=== PATIENT | female | born 1990 | race Caucasian/White ===

== ENCOUNTER 2016-05-13 16:19 | Emergency (ER) | payer OTHER ==
[2016-05-13] MEDS ORDERED: Ketorolac INJ* 30 MG/ML 1 ML VIAL IV PUSH ONE (19:29)
[2016-05-13] MEDS ORDERED: NS 0.9% 1000 ML* 1,000 ML IV ONE (19:29)
[2016-05-13 19:58] LABS: Hematocrit 35 % (35-47); Hemoglobin 11.2 g/dl (12.0-16.0); Mean Corpuscular HGB Conc 32 g/dl (31-36); Mean Corpuscular Hemoglobin 28 pg (27-31); Mean Corpuscular Volume 87 fL (80-97); Mean Platelet Volume 9 um3 (7.4-10.4); Red Blood Count 4.01 10^6/ul (4.0-5.4); Red Cell Distribution Width 14 % (10.5-15)
[2016-05-13 20:02] LABS: Urine Bacteria 1+ (Absent); Urine Bilirubin Negative (Negative); Urine Glucose Negative (Negative); Urine Nitrite Negative (Negative)
[2016-05-13 20:05] LABS: Albumin 3.6 g/dL (3.2-5.2); BUN/Creatinine Ratio 11.6 (8-20); Calcium 9.1 mg/dL (8.6-10.3); EGFR African American 133.3 (>60); EGFR Non-African American 103.7 (>60); Globulin 3.5 g/dL (2-4); Magnesium 1.9 mg/dL (1.9-2.7); Potassium 3.7 mmol/L (3.5-5.0); Total Bilirubin 0.2 mg/dL (0.2-1.0); Total Protein 7.1 g/dL (6.4-8.9)
--- NOTE | 2016-05-13 20:05 | ED ---
roberta Tucker Timothy, scribed for Shakira Coker MD on 05/13/16 at 1924 . GI/ HPI - HPI Summary HPI Summary: Nita Ramesh is a 26 yo female presenting to [facility] with 4 days of PID symptoms including constant, severe 6/10 pelvic pain made worse with position, heavy discharge (greenish and bleeding) x 2 days, fevers and chills, and some urinary discomfort. Pt reports tactile temp. Pt states she is nitrofuratoin from PCP x 2 days. She saw [facility] yesterday for discharge. Pt did not have a pelvic exam. Pt states she was admitted with PID several months a She is presenting to the ED upon recommendation to appear if her pelvic pain worsened, which it has. Her last menses was 04/27/16. Pt reports negative test yesterday. Pt denies dx of STDs. Pt has been taking Motrin with intermittent relief. Last dose at 2pm. Pt is sexually active with 1 partner. She has no other significant MHx. - History of Current Complaint Chief Complaint: EDUrogenitalProblems Time Seen by Provider: 05/13/16 18:37 Stated Complaint: PELVIC PAIN/VAG.BLEEDING/VOMITING Hx Obtained From: Patient Onset/Duration: Started Days Ago, Still Present, Worse Since - today Timing: Constant, Lasting Days Severity: Moderate Current Severity: Moderate Pain Intensity: 6 Location of Pain: Suprapubic Associated Signs and Symptoms: Positive: Nausea, Vomiting, Discharge, Fever, Dysuria Additional Signs & Symptoms: Positive: Vaginal Discharge Aggravating Factor(s): Movement - position Alleviating Factor(s): Nothing - Additional Pertinent History Primary Care Physician: ALISHA - Allergy/Home Medications Allergies/Adverse Reactions: Allergies Allergy/AdvReac Type Severity Reaction Status Date / Time Tramadol Allergy Severe N/V Verified 05/13/16 16:37 Home Medications: Home Medications Advil TAB* 600 mg PO Q6H PRN 05/13/16 [History Confirmed 05/13/16] Nitrofurantoin 100 mg PO BID 05/13/16 [History Confirmed 05/13/16] PMH/Surg Hx/FS Hx/Imm Hx Previously Healthy: Yes Endocrine/Hematology History: Denies: Hx Diabetes, Hx Thyroid Disease Cardiovascular History: Denies: Hx Hypertension Respiratory History: Denies: Hx Asthma, Hx Chronic Obstructive Pulmonary Disease (COPD) GI History: Reports: Other GI Disorders - nausea, vomiting on and off [id number] Denies: Hx Ulcer History: Reports: Other Problems/Disorders - PID x 2, and frequent UTIs Sensory History: Denies: Hx Contacts or Glasses - glasses Opthamlomology History: Denies: Hx Contacts or Glasses - glasses - Surgical History Surgery Procedure, Year, and Place: CHOLECYSTECTOMY 05/2014 Hx Anesthesia Reactions: No Infectious Disease History: No Infectious Disease History: Denies: Hx Clostridium Difficile, Hx Hepatitis, Hx Human Immunodeficiency Virus (HIV), Hx of Known/Suspected MRSA, History Other Infectious Disease, Traveled Outside the [place] in Last 30 Days - Family History Known Family History: Positive: Hypertension, Other - Grandfather Leukemia - Social History Alcohol Use: Occasionally Alcohol Amount: 3 GLASSES/WEEK Substance Use Type: Reports: Marijuana Substance Use Comment - Amount & Last Used: OCCASIONALLY Hx Tobacco Use: No Smoking Status (MU): Never Smoked Tobacco Review of Systems Positive: Fever, Chills Eyes: Negative Negative: Photophobia, Blurred Vision, Diplopia, Drainage, Erythema ENT: Negative Negative: Epistaxis, Dental Pain, Sore Throat, Ear Ache, Nasal Discharge Cardiovascular: Negative Negative: Palpitations, Chest Pain Respiratory: Negative Negative: Shortness Of Breath, Cough Positive: Vomiting, Nausea. Negative: Abdominal Pain, Diarrhea Genitourinary: Other - pelvic pain Positive: dysuria, discharge. Negative: burning, frequency, flank pain, hematuria, incontinence, pain, urgency Musculoskeletal: Negative Negative: Arthralgia, Myalgia, Decreased ROM, Edema Skin: Negative Negative: Rash, Bruising Neurological: Negative Negative: Headache, Weakness, Paresthesia, Numbness, Syncope, Slurred Speech Psychological: Normal Negative: Anxious, Depressed All Other Systems Reviewed And Are Negative: Yes Physical Exam Triage Information Reviewed: Yes Vital Signs On Initial Exam: Initial Vitals Temp Pulse Resp BP Pulse Ox 98.1 F 68 16 113/61 99 05/13/16 16:31 05/13/16 16:31 05/13/16 16:31 05/13/16 16:31 05/13/16 16:31 Vital Signs Reviewed: Yes Appearance: Positive: Well-Appearing, No Pain Distress, Well-Nourished Skin: Positive: Warm, Skin Color Reflects Adequate Perfusion, Dry Head/Face: Positive: Normal Head/Face Inspection Eyes: Positive: Normal, EOMI, KELI ENT: Positive: Normal ENT inspection, TMs normal Neck: Positive: Supple, Nontender, No Lymphadenopathy Respiratory/Lung Sounds: Positive: Clear to Auscultation, Breath Sounds Present. Negative: Stridor, Wheezes Cardiovascular: Positive: Normal, RRR, Murmur Abdomen Description: Positive: Nontender, No Organomegaly, Soft. Negative: Distended, Guarding Bowel Sounds: Positive: Present Pelvic Exam: Positive: discharge - Pt with yellow, green tinged discharge. No bleeding. no lesions No odor, tender w/ cervical motion. Negative: external exam normal, speculum exam normal, no cerv. motion tender - minimal CMT, blood, lesions, mass, tender adnexa, tender uterus, ulcers, other Musculoskeletal: Positive: Normal Neurological: Positive: Normal, Sensory/Motor Intact Psychiatric: Positive: Normal AVPU Assessment: Alert - Aman Coma Scale Best Eye Response: 4 - Spontaneous Best Motor Response: 6 - Obeys Commands Best Verbal Response: 5 - Oriented Coma Scale Total: 15 Diagnostics - Vital Signs Vital Signs Temp Pulse Resp BP Pulse Ox 05/13/16 18:31 78 100 05/13/16 16:45 99.2 F 74 16 100/52 99 05/13/16 16:31 98.1 F 68 16 113/61 99 - Laboratory Lab Results: Lab Results 05/13/16 05/13/16 Range/Units 18:25 18:45 WBC 13.0 H (3.5-10.8) 10^3/ul RBC 4.01 (4.0-5.4) 10^6/ul Hgb 11.2 L (12.0-16.0) g/dl Hct 35 (35-47) % MCV 87 (80-97) fL MCH 28 (27-31) pg MCHC 32 (31-36) g/dl RDW 14 (10.5-15) % Plt Count 203 (150-450) 10^3/ul MPV 9 (7.4-10.4) um3 Neut % (Auto) 70.3 (38-83) % Lymph % (Auto) 19.6 L (25-47) % [place] % (Auto) 7.2 (1-9) % Eos % (Auto) 2.6 (0-6) % Baso % (Auto) 0.3 (0-2) % Absolute Neuts (auto) 9.2 H (1.5-7.7) 10^3/ul Absolute Lymphs (auto) 2.6 (1.0-4.8) 10^3/ul Absolute Monos (auto) 0.9 H (0-0.8) 10^3/ul Absolute Eos (auto) 0.3 (0-0.6) 10^3/ul Absolute Basos (auto) 0 (0-0.2) 10^3/ul Absolute Nucleated RBC 0 10^3/ul Nucleated RBC % 0 Urine Color Yellow Urine Appearance Clear Urine pH 5.0 (5-9) Ur Specific [place] 1.018 (1.010-1.030) Urine Protein Negative (Negative) Urine Ketones Negative (Negative) Urine Blood 2+ H (Negative) Urine Nitrate Negative (Negative) Urine Bilirubin Negative (Negative) Urine Urobilinogen Negative (Negative) Ur Leukocyte Esterase Trace H (Negative) Urine WBC (Auto) 2+(11-20/hpf) H (Absent) Urine RBC (Auto) 1+(3-5/hpf) H (Absent) Ur Squamous Epith Cells Present H (Absent) Urine Bacteria 1+ H (Absent) Urine Glucose Negative (Negative) Result Diagrams: 05/13/16 18:45 05/13/16 18:45 Lab Statement: Any lab studies that have been ordered have been reviewed, and results considered in the medical decision making process. GIGU Course/Dx - Course Assessment/Plan: Pt presents with pelvic pain. yellow/green discharge mild CMT. Culture taken. Will check cbc/cmp. toradol. IVF. will check pelvic ultrasound. pending results -w ill give abx - likely d/c. Pt in agreement with plan - Diagnoses Provider Diagnoses: Pelvic pain Discharge - Discharge Plan Condition: Stable Disposition: OTHER Discharge Disposition Comment: Dr. Tavera 2100 ultrasound pending The documentation as recorded by the roberta doty Timothy accurately reflects the service I personally performed and the decisions made by , Shakira Coker MD.
[2016-05-13 21:26] VITALS: BP 97/55
--- NOTE | 2016-05-13 22:48 | RAD ---
Indication: Pelvic pain and pelvic discharged, possible PID. COMPARISON: Comparison is made with a prior study from January 16, 2016. TECHNIQUE: Multiple real-time transvaginal images of the pelvis were obtained. FINDINGS: The uterus is normal in size, shape and echogenicity. The uterus measured 6.7 x 3.8 x 5.0 cm. The endometrial echo measured 0.4 cm in thickness. The right ovary measured 2.1 x 1.2 x 1.7 cm. The left ovary measured 2.4 x 1.2 x 1.2 cm. There is vascular flow within both ovaries. No free intraperitoneal fluid is seen. IMPRESSION: NEGATIVE EXAM.
[2016-05-13] MEDS ORDERED: cefTRIAXone VIAL(*) 250 MG VIAL IM ONE (23:03)
[2016-05-13] MEDS ORDERED: DOXYcycline CAP(*) 100 MG PO ONE (23:03)
[2016-05-13] MEDS ORDERED: metroNIDAZOLE TAB* 250 MG PO ONE (23:03)
== END 2016-05-13 23:33 ==
LOC: ED 16:19
DX: R10.2 Pelvic and perineal pain (principal); R50.9 Fever, unspecified; R11.2 Nausea with vomiting, unspecified; R30.0 Dysuria
CPT/HCPCS: 36415; 76830; 80053; 81003; 81015; 83735; 85025; 86703; 87086; 87480; 87491; 87510; 87591; 87661; 96372; 96374; 99283; A9270-GY; J0696; J1885

== ENCOUNTER 2016-09-30 09:49 | Emergency (ER) | payer OTHER ==
[2016-09-30] MEDS ORDERED: Ondansetron ODT TAB* 4 MG PO ONE ×2 (10:00→10:32)
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
--- NOTE | 2016-09-30 11:46 | RAD ---
INDICATION: Left rib injury. TECHNIQUE: 4 views of the left ribs were obtained. FINDINGS: No fracture or significant focal osseous abnormality is seen. IMPRESSION: NO EVIDENCE FOR FRACTURE.
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
[2016-09-30 12:21] VITALS: BP 97/55
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
== END 2016-09-30 12:24 | disposition home or self-care (01) ==
LOC: UCEAST 09:49
DX: S20.212A Contusion of left front wall of thorax, initial encounter (principal); F07.81 Postconcussional syndrome; S16.1XXA Strain of muscle, fascia and tendon at neck level, initial encounter; V89.2XXA Person injured in unspecified motor-vehicle accident, traffic, initial encounter; W22.10XA Striking against or struck by unspecified automobile airbag, initial encounter; Y93.9 Activity, unspecified; Y92.9 Unspecified place or not applicable; Y99.9 Unspecified external cause status
CPT/HCPCS: 70450; 71020; 72050; 99212; A9270-GY; G0463

== ENCOUNTER 2016-10-28 19:38 | Emergency (ER) | payer OTHER ==
[2016-10-28 19:49] VITALS: BP 105/68
--- NOTE | 2016-10-28 21:02 | UC ---
roberta Tucker Timothy, scribed for Shakira Coker MD on 10/28/16 at 2048 . Throat Pain/Nasal Amado HPI - HPI Summary HPI Summary: Nita Ramesh is a 26 yo female presenting to [facility] with 6/10 sore throat for the past 2 days and concern for UTI with burning dysuria for the past week. She notes mild hematuria and fever this morning. She notes mild nausea and sinus congestion as well. She denies vaginal itching or odor, as well as wounds and STI. She states her last instance of intercourse was a few days ago, and it was painful, which is unusual. Pt states has been treated for PDI in the past, but denies h/o STI. Pt states her sx today feel similar to previous PID. She states it is possible her most recent partner may have sTI. No fevers, chills, rash. No difficulty swallowing. No canchola, vision changes No rash. - History of Current Complaint Chief Complaint: UCGU Stated Complaint: SORE THROAT AND UTI COMPLAINT Time Seen by Provider: 10/28/16 20:48 Hx Obtained From: Patient Hx Last Menstrual Period: 10/24/16 Onset/Duration: Sudden Onset, Lasting Days, Still Present Severity: Moderate Pain Intensity: 6 Pain Scale Used: 0-10 Numeric Cough: None Associated Signs & Symptoms: Positive: Sinus Discomfort, Other - burning dysuria , nausea - Allergies/Home Medications Allergies/Adverse Reactions: Allergies Allergy/AdvReac Type Severity Reaction Status Date / Time No Known Allergies Allergy Verified 09/30/16 10:00 PMH/Surg Hx/FS Hx/Imm Hx Previously Healthy: Yes Other GI/ History: PIDx2, frequent UTI - Surgical History Surgical History: Yes Surgery Procedure, Year, and Place: CHOLECYSTECTOMY 05/2014 - Family History Known Family History: Positive: Hypertension, Other - Grandfather Leukemia - Social History Occupation: Employed Full-time Alcohol Use: Occasionally Alcohol Amount: 3 GLASSES/WEEK Substance Use Type: Marijuana Substance Use Comment - Amount & Last Used: OCCASIONALLY Smoking Status (MU): Never Smoked Tobacco Household Exposure Type: Cigarettes - Immunization History Most Recent Influenza Vaccination: 2016 Most Recent Tetanus Shot: unknown Most Recent Pneumonia Vaccination: never Review of Systems Constitutional: Fever Skin: Negative Eyes: Negative ENT: Sore Throat, Sinus Congestion Respiratory: Negative Cardiovascular: Negative Gastrointestinal: Nausea Genitourinary: Dysuria Motor: Negative Neurovascular: Negative Musculoskeletal: Negative Neurological: Negative Psychological: Negative All Other Systems Reviewed And Are Negative: Yes Physical Exam Triage Information Reviewed: Yes Vital Signs: Initial Vital Signs Temp 98.3 F 10/28/16 19:45 Pulse 88 10/28/16 19:45 Resp 18 10/28/16 19:45 BP 105/68 10/28/16 19:45 Pulse Ox 100 10/28/16 19:45 Vital Signs Reviewed: Yes Eye Exam: Normal ENT Exam: Normal ENT: Positive: Normal ENT inspection, TMs normal. Negative: Pharyngeal erythema , Nasal congestion, Tonsillar swelling, Tonsillar exudate Dental Exam: Normal Neck exam: Normal Neck: Positive: Supple, Nontender, No Lymphadenopathy Respiratory Exam: Normal Respiratory: Positive: Chest non-tender, Lungs clear, Normal breath sounds, No respiratory distress Cardiovascular Exam: Normal Cardiovascular: Positive: RRR, No Murmur Abdominal Exam: Normal Abdomen Description: Positive: Nontender, No Organomegaly, Soft Bowel Sounds: Positive: Present Musculoskeletal Exam: Normal Neurological Exam: Normal Psychological Exam: Normal Skin Exam: Normal Throat Pain/Nasal Course/Dx - Course Assessment/Plan: Nita Ramesh is a 26 yo female presenting to [facility] with 6/10 sore throat for the past 2 days and burning dysuria for the past wee. Pt with stable vss and no concerning exam. D/w pt urine without clear infection. consider gonorrhea as possibile dx. Will treat wtih dx - culture. Pt comfortable and in agreement with plan. Pt moved to [facility] - gave info for women's health clinic. return precautions discussed. Pt medication list reviewed this visit. - Differential Dx/Diagnosis Differential Diagnosis/HQI/PQRI: Other - sore throat, uti Provider Diagnoses: dysuria, pharyngitis Discharge - Discharge Plan Condition: Stable Disposition: HOME Prescriptions: DOXYcycline CAP(*) [DOXYcycline 100MG CAP(*)] 100 mg PO BID #20 cap Patient Education Materials: Pharyngitis (ED), Dysuria (ED) Referrals: Lizz Fuentes MD [Primary Care Provider] - 2 Days Additional Instructions: Take antibiotics as prescribed As discussed with your provider today, your urine is being further tested for gonorrhea and chlamydia You are being treated with an antibiotic today that will treat this infection It is recommended you follow-up with a garment presser -either your garment presser in [place] or in a new provider in the [facility] area The woman's health clinic on [address] is accepting new patients Stay well hydrated Take motrin or tylenol as needed contact your doctor or return with questions or concerns The documentation as recorded by the roberta doty Timothy accurately reflects the service I personally performed and the decisions made by me, Shakira Coker MD.
[2016-10-28] MEDS ORDERED: DOXYcycline CAP(*) 100 MG PO ONE (21:03)
== END 2016-10-28 21:25 | disposition home or self-care (01) ==
LOC: UCEAST 19:38
DX: R30.0 Dysuria (principal); J02.9 Acute pharyngitis, unspecified; Z72.0 Tobacco use
CPT/HCPCS: 81003; 84702; 87077; 87086; 87186; 87491; 87591; 87651; 99212; A9270-GY; G0463

== ENCOUNTER 2016-12-04 12:20 | Emergency (ER) | payer OTHER ==
--- NOTE | 2016-12-04 13:59 | RAD ---
INDICATION: Low back pain with hematuria COMPARISON: CT abdomen pelvis May 11, 2015 TECHNIQUE: Noncontrast axial source images were acquired from the level hemidiaphragms to the symphysis pubis as part of CT imaging for renal stone. Lung bases: The lung bases are clear. Liver: The liver is normal in size. Noncontrast imaging shows no evidence of a hepatic mass or ductal dilatation. Gallbladder: There are no calcified gallstones. There is no evidence of wall thickening or pericholecystic fluid.. Spleen: The spleen is normal in size. The noncontrast CT appearance is normal. Pancreas: Noncontrast imaging shows no pancreatic mass or ductal dilitation. Adrenal glands: No masses are identified. Kidneys/Bladder: There is no evidence of nephrolithiasis or CT evidence of hydronephrosis. Noncontrast imaging shows no evidence of a renal mass. The bladder is unremarkable. There are phleboliths in the minor pelvis. Adenopathy: There is no evidence of intraperitoneal or retroperitoneal adenopathy. Evaluation is limited without oral contrast. Fluid collections: There are no free or localized fluid collections. Vessels: The aorta and iliac vessels are normal in caliber. There are no significant atherosclerotic changes. The IVC appears normal Pelvic organs: The uterus and adnexa appear normal GI tract: Evaluation of the bowel is limited without oral contrast. The stomach, small bowel, and lower GI tract appear grossly normal. There is moderate stool in the rectal vault. There are no obstructive findings. The appendix is visualized and appears normal. Soft tissues: No soft tissue abnormalities of the extraperitoneal abdomen or pelvis are identified. Osseous structures: There are no acute osseous findings. IMPRESSION: NO CT EVIDENCE OF UROLITHIASIS . MODERATE STOOL RECTAL VAULT.
[2016-12-04] MEDS ORDERED: cefTRIAXone VIAL(*) 250 MG VIAL IM ONE (14:34)
[2016-12-04] MEDS ORDERED: Lidocaine 1% INJ* 10 MG/ML 30 ML SDV INJ ONE (14:37)
[2016-12-04 14:38] VITALS: BP 117/79
[2016-12-04] MEDS ORDERED: Lidocaine 1% MPF* 2 ML VIAL ONE (14:46)
--- NOTE | 2016-12-05 14:30 | ED ---
Progress - Progress Note Progress Note: Pt with + Garderella - was given Flagyl at time of eval - no change urine + klebsiella - awaitin sensitivities Ljj Course/Dx - Diagnoses Provider Diagnoses: Bacterial vaginosis
--- NOTE | 2016-12-06 09:16 | ED ---
Progress - Progress Note Progress Note: Pt with + Garderella - was given Flagyl at time of eval - no change urine + klebsiella - awaitin sensitivities Ljj 12/06/16 DOXYCYCLINE SENSITIVE TO KLEBSIELA. SEE HOW PATIENT IS DOING/ IF WORSE F /U PCP OR ER. Course/Dx - Diagnoses Provider Diagnoses: Bacterial vaginosis
== END 2016-12-04 15:25 | disposition home or self-care (01) ==
LOC: UCEAST 12:20
DX: N76.0 Acute vaginitis (principal); Z32.02 Encounter for pregnancy test, result negative
CPT/HCPCS: 74176; 81003; 84702; 87070; 87077; 87086; 87186; 87480; 87491; 87510; 87591; 87661; 96372; 99212; G0463; J0696; J2001

== ENCOUNTER 2018-03-25 13:16 | Emergency (ER) | payer SELFPAY ==
--- NOTE | 2018-03-25 13:35 | UC ---
GI Bleed HPI - HPI Summary HPI Summary: Started w/ vomiting and abd discomfort a week ago. She feels she has a GI bug. Today vomited approx 5 times and there was blood tinged vomit. Of note she has a hx of eating disorder but has not purged in years. - History Of Current Complaint Chief Complaint: UCGeneralIllness Stated Complaint: VOMITTIGN BLOOD, LIGHTHEADEDNESS Time Seen by Provider: 03/25/18 13:18 Hx Last Menstrual Period: merina Onset/Duration: Gradual Onset Severity Initially: Mild Severity Currently: Mild Pain Intensity: 5 Pain Scale Used: 0-10 Numeric Associated Pain: None Aggravating Factor(s): Other - nothing Alleviating Factor(s): Other - nothing Associated Signs And Symptoms: Positive: Dizziness, Weakness. Negative: Syncope - Allergies/Home medications Allergies/Adverse Reactions: Allergies Allergy/AdvReac Type Severity Reaction Status Date / Time No Known Allergies Allergy Verified 03/25/18 13:25 PMH/Surg Hx/FS Hx/Imm Hx - Additional Past Medical History Additional PMH: hx of eating disorder Previously Healthy: Yes GI/ History: Gastrointestional Bleed - Surgical History Surgical History: Yes Surgery Procedure, Year, and Place: CHOLECYSTECTOMY 05/2014 - Family History Known Family History: Positive: Hypertension, Other - Grandfather Leukemia - Social History Alcohol Use: Rare Alcohol Amount: 3 GLASSES/WEEK Substance Use Type: Marijuana Substance Use Comment - Amount & Last Used: OCCASIONALLY Smoking Status (MU): Never Smoked Tobacco Household Exposure Type: Cigarettes - Immunization History Most Recent Influenza Vaccination: 2016 Most Recent Tetanus Shot: unknown Most Recent Pneumonia Vaccination: never Review of Systems All Other Systems Reviewed And Are Negative: Yes Constitutional: Positive: Fatigue, Other - decrease appetite, not eating. Respiratory: Positive: Negative Cardiovascular: Positive: Negative Gastrointestinal: Positive: Vomiting Genitourinary: Positive: Negative Neurological: Positive: Weakness, Other - dizzy Psychological: Positive: Negative Physical Exam Triage Information Reviewed: Yes Appearance: Well-Appearing Vital Signs: Initial Vital Signs Temp 98 F 03/25/18 13:21 Pulse 68 03/25/18 13:21 Resp 16 03/25/18 13:21 BP 117/75 03/25/18 13:21 Pulse Ox 100 03/25/18 13:21 Vital Signs Reviewed: Yes Neck: Positive: No Lymphadenopathy Respiratory Exam: Normal Cardiovascular Exam: Normal Abdominal Exam: Normal Neurological: Positive: Alert Bleed Course/Dx - Course Course Of Treatment: mild case of hematemesis. ? rhiannon-aguilar tear. + orthostatic. could be GI illness but given her hx of dx: vomiting w/ blood and hx of eating disorder she should probably get worked up w/ hct, blood work and ? endoscopy. strongly recommended she go to ED via ambulance. she declined due to cost. she did leave w/ a friend. i did review her endoscopy report from 2016 which was essentially NL. - Differential Dx/Diagnosis Differential Diagnosis/HQI/PQRI: Adverse Drug Effect, Esophageal Varices, Esophagitis Provider Diagnosis: Hematemesis/vomiting blood, Orthostatic dizziness Discharge - Sign-Out/Discharge Documenting (check all that apply): Patient Departure All imaging exams completed and their final reports reviewed: No Studies - Discharge Plan Condition: Good Disposition: HOME-RECOMMEND TO ED Patient Education Materials: Syncope (ED), Rhiannon-Aguilar Syndrome (ED) Forms: *School Release Referrals: No Primary Care Phys,NOPCP [Primary Care Provider] - Jack Lazaro MD [Medical Doctor] - Additional Instructions: I strongly recommend you go to the [facility] for a jerry evaluation. - Billing Disposition and Condition Condition: GOOD Disposition: Home-Recommend to ED
[2018-03-25 13:38] VITALS: BP 105/80
== END 2018-03-25 13:47 | disposition home health service (06) ==
LOC: UCEAST 13:16
DX: K92.0 Hematemesis (principal); R42 Dizziness and giddiness
CPT/HCPCS: 99212; G0463

== ENCOUNTER → 2018-03-25 14:13 | Emergency (ER) | payer SELFPAY ==
[~2018-03-25 14:13] MED LIST: Acetaminophen TAB* 325 MG PO ONE; Famotidine IV* 10 MG/ML 2 ML (20 mg) IV SLOW PU ONE; NS 0.9% 1000 ML* 1,000 ML IV ONE; Ondansetron INJ* 2 MG/ML VIAL IV ONE
[2018-03-25 14:20] VITALS: BP 117/78
--- NOTE | 2018-03-25 15:41 | ED ---
Nausea/Vomiting/Diarrhea HPI - HPI Summary HPI Summary: Patient is a 28-year-old female sent in from urgent care with nausea and vomiting over the course of the last 3 days, she endorses 6xs emesis today she states with flecks of blood.She also states she had 1 syncopal episode after vomiting and hit the R jainism. Endorses 2/10 ADAMS. Denies confusion, memory loss , visual changes. History of bulimia, this is not current. She denies any abdominal pain, urinary urgency, frequency, burning, back pain. She states she has been on multiple antibiotics over the course of the past several months for upper respiratory infections and gets sick with oral antibiotics, causing her to throw up. However, she has not been on antibiotics for several weeks is unsure what this is caused from. She denies eating anything abnormal. She denies any diarrhea or constipation. She denies any fevers, sweats, chills at home. - History of Current Complaint Chief Complaint: EDNauseaVomitDiarrh Stated Complaint: VOMITING AND FAINTED Time Seen by Provider: 03/25/18 14:16 Hx Obtained From: Patient Hx Last Menstrual Period: merina ?: No Onset/Duration: Sudden Onset Timing: Constant Severity Initially: Mild Severity Currently: Mild Pain Intensity: 5 Pain Scale Used: 0-10 Numeric Aggravating Factor(s): Nothing Alleviating Factor(s): Nothing Vomiting Frequency: Every 3-4 hours Nausea/Vomiting Duration: 12-24 hours Diarrhea Presence: No - Risk Factors Influenza Risk Factors: Negative - Allergies/Home Medications Allergies/Adverse Reactions: Allergies Allergy/AdvReac Type Severity Reaction Status Date / Time No Known Allergies Allergy Verified 03/25/18 13:25 PMH/Surg Hx/FS Hx/Imm Hx Previously Healthy: Yes Endocrine/Hematology History: Denies: Hx Diabetes, Hx Thyroid Disease Cardiovascular History: Denies: Hx Hypertension Respiratory History: Denies: Hx Asthma, Hx Chronic Obstructive Pulmonary Disease (COPD) GI History: Reports: Other GI Disorders - nausea, vomiting on and off [id number] Denies: Hx Ulcer History: Reports: Other Problems/Disorders - PID x 2, and frequent UTIs Sensory History: Denies: Hx Contacts or Glasses - glasses Opthamlomology History: Denies: Hx Contacts or Glasses - glasses - Surgical History Surgery Procedure, Year, and Place: CHOLECYSTECTOMY 05/2014 Hx Anesthesia Reactions: No - Immunization History Hx Pertussis Vaccination: No Immunizations Up to Date: Yes Infectious Disease History: No Infectious Disease History: Denies: Hx Clostridium Difficile, Hx Hepatitis, Hx Human Immunodeficiency Virus (HIV), Hx of Known/Suspected MRSA, History Other Infectious Disease, Traveled Outside the [place] in Last 30 Days - Family History Known Family History: Positive: Hypertension, Other - Grandfather Leukemia - Social History Occupation: Employed Full-time Lives: With Family Alcohol Use: Rare Alcohol Amount: 3 GLASSES/WEEK Hx Substance Use: Yes Substance Use Type: Reports: Marijuana Substance Use Comment - Amount & Last Used: OCCASIONALLY Hx Tobacco Use: No Smoking Status (MU): Never Smoked Tobacco Review of Systems Constitutional: Negative Negative: Fever, Chills, Fatigue, Skin Diaphoresis Negative: Palpitations, Chest Pain Negative: Shortness Of Breath, Cough Positive: Vomiting, Nausea, Other - hematemesis Genitourinary: Negative Positive: no symptoms reported, see HPI Negative: Arthralgia, Myalgia Skin: Negative Neurological: Negative All Other Systems Reviewed And Are Negative: Yes Physical Exam Triage Information Reviewed: Yes Vital Signs On Initial Exam: Initial Vitals Temp Pulse Resp BP Pulse Ox 98.2 F 65 18 117/78 98 03/25/18 14:15 03/25/18 14:15 03/25/18 14:15 03/25/18 14:15 03/25/18 14:15 Completion Of Physical Exam Limited Due To: Dementia Appearance: Positive: Well-Appearing, Well-Nourished Skin: Positive: Skin Color Reflects Adequate Perfusion Head/Face: Positive: Normal Head/Face Inspection Eyes: Positive: EOMI, KELI, Conjunctiva Clear Neck: Positive: Supple Respiratory/Lung Sounds: Positive: Clear to Auscultation, Breath Sounds Present Cardiovascular: Positive: Pulses are Symmetrical in both Upper and Lower Extremities Musculoskeletal: Positive: Normal, Strength/ROM Intact Neurological: Positive: Speech Normal Psychiatric: Positive: Affect/Mood Appropriate AVPU Assessment: Alert Diagnostics - Vital Signs Vital Signs Temp Pulse Resp BP Pulse Ox 03/25/18 14:15 98.2 F 65 18 117/78 98 - Laboratory Result Diagrams: 03/25/18 15:47 03/25/18 15:47 Lab Statement: Any lab studies that have been ordered have been reviewed, and results considered in the medical decision making process. Naus/Vom/Diarrhea Course/Dx - Course Course Of Treatment: During the course treatment, the patient's evaluated for 6 times emesis on this date as well as a syncopal episode. She endorses a fall, hitting the right jainism denies having a headache. This occurred approximately 8 hours ago. She denies any worsening headache, but endorses a headache of 3/10 , intermittent and aching. She appears well on physical examination, lungs CTA , RRR, no abdominal pain throughout palpation. Good bowel sounds. She is given 2 L fluids and 4 mg Zofran. Labs obtained are unremarkable. - Differential Dx/Diagnosis Differential Diagnoses - Female: Other - hematemesis, viral syndrome, rhiannon cheng Provider Diagnosis: Nausea and vomiting Condition At Discharge: Stable Discharge - Sign-Out/Discharge Documenting (check all that apply): Patient Departure - Discharge Plan Condition: Stable Disposition: HOME Prescriptions: Ondansetron ODT TAB* [Zofran 4 MG Odt TAB*] 4 mg PO Q6H PRN #12 tab.odt MDD 4 PRN Reason: Nausea Referrals: No Primary Care Phys,NOPCP [Primary Care Provider] - Additional Instructions: Drink plenty of fluids Zofran up to every 4 hours as needed for nausea - Billing Disposition and Condition Condition: STABLE Disposition: Home
[2018-03-25 15:59] LABS: ABS Basophils 0.1 10^3/ul (0-0.2); ABS Eosinophils 0.1 10^3/ul (0-0.6); ABS Lymphocytes 2.1 10^3/ul (1.0-4.8); ABS Monocytes 0.9 10^3/ul (0-0.8); ABS Neutrophils 5.1 10^3/ul (1.5-7.7); ABS Nucleated RBC 0 10^3/ul; Eosinophil % 1.7 %; Hematocrit 40 % (35-47); Hemoglobin 13.5 g/dl (12.0-16.0); Lymphocyte % 25.1 %; Mean Corpuscular HGB Conc 34 g/dl (31-36); Mean Corpuscular Hemoglobin 30 pg (27-31); Mean Corpuscular Volume 91 fL (80-97); Mean Platelet Volume 8.2 fL (7.4-10.4); Nucleated Red Blood Cells % 0; Platelet Count 206 10^3/ul (150-450); Red Blood Count 4.45 10^6/ul (4.00-5.40); Red Cell Distribution Width 13 % (10.5-15); White Blood Count 8.3 10^3/ul (3.5-10.8)
[2018-03-25 16:18] LABS: EGFR Non-African American 124.7 (>60)
== END | disposition home or self-care (01) ==
LOC: ED 14:13
DX: R11.2 Nausea with vomiting, unspecified (principal); Z90.49 Acquired absence of other specified parts of digestive tract; R00.1 Bradycardia, unspecified
CPT/HCPCS: 36415; 80053; 83605; 83735; 85025; 93005; 96374; 96375; 99282; A9270-GY; J2405